=== PATIENT | female | born 1990 | race Caucasian/White ===

== ENCOUNTER 2019-11-09 07:24 | Outpatient (RCR) | payer OTHER, SELFPAY ==
[2019-08-17 12:36] VITALS: BMI 37.8
== END 2019-11-15 23:59 | disposition home or self-care (01) ==
LOC: ANHWOC 07:24
PROVIDERS: Visit Provider Obstetrics & Gynecology
DX: T81.41XD Infection following a procedure, superficial incisional surgical site, subsequent encounter (principal)
CPT/HCPCS: 99212; 99213; A9270; G0463

== ENCOUNTER 2019-12-06 06:14 | Outpatient (CLI) | payer OTHER, SELFPAY | END 2019-12-06 06:15 | disposition home or self-care (01) | PROVIDERS: Visit Provider Obstetrics & Gynecology | DX: Z01.818 Encounter for other preprocedural examination (principal); Z11.59 Encounter for screening for other viral diseases | CPT/HCPCS: 87635; C9803; U0003 ==

== ENCOUNTER 2019-12-08 00:33 | Day surgery (SDC) | payer OTHER, SELFPAY ==
[2019-12-03 09:34] VITALS: BMI 33.6
--- NOTE | 2019-12-08 11:31 | WPDANESEPPF ---
Anes - Initial Pre Proc Eval Procedure: Operation Date: 12/08/19 12:30 Proposed Procedures p Excision Embedded Stitch Post Section - Fuad Cooley MD Date/Time: 12/08/19 11:31 Surgeon: Fuad Cooley MD Pre Op Diagnosis: Post Imbedded Stitch Patient Data Age: 29 Gender: F Height: 5 ft 4 in Weight: 88.9 kg Allergies Allergy/AdvReac Type Severity Reaction Status Date / Time Penicillins Allergy Unknown Hives / Verified 12/03/19 09:35 Red Face Home Medications Medication Instructions Recorded Confirmed Type 21-iron fu-folic acid 1 tablet PO DAILY 12/03/19 12/03/19 History [ Complete] sertraline 100 mg PO DAILY 12/03/19 12/03/19 History Patient hx anesthesia problems: none Family hx anesthesia problems: none PMFSH Past Medical History Medical History (Updated 12/08/19 @ 11:31 by Jay Bennett MD) Obesity Surgical History Surgical History (Updated 12/08/19 @ 11:31 by Jay Bennett MD) H/O dilation and curettage History of section Family History Family History Other Cancer Hypertension Unknown family medical history Social History Social History Smoking status: Former smoker Smoking end date: 07/27/19 Substance use: never Gender identity (if verbalized by the patient): Female Spiritual care concerns: No Anes - Eval Final PreProcedure Day of Procedure 12/08/19 11:31 Patient weight: obese Heart: regular rate and rhythm Lungs: clear to auscultation Airway: Mallampati scale class II Neurological: alert and oriented Last oral intake: >/= 8 hours ASA classification: II Emergent: no Anesthetic plan: proceed Anesthesia type and monitoring: general GIVS and standard monitoring Informed Consent: The patient's anesthetic plan and its attendant risks and benefits were discussed with the patient/family/POA. Questions were solicited and answers provided to the satisfaction of the patient/family/POA.
--- NOTE | 2019-12-08 12:00 | P.HP_ITS ---
H&P: HPI History of Present Illness Chief complaint: Post Imbedded Stitch Narrative: 29 y/o who had a on 07/27/19. She has had persistent trouble with wound infections and slow healing. Wound care has asked that we consider removing an embedded suture which might be hindering the recovery process. Otherwise, no pain, no GI/ complaints. . Baby doing well. Mood much better on Zoloft 100mg daily. Review of Systems Review of Systems: All systems reviewed & are unremarkable except as noted in HPI and below PMFSH Past Medical History Medical History (Updated 12/08/19 @ 12:03 by Fuad Cooley MD) Anxiety Obesity Surgical History Surgical History H/O dilation and curettage History of section Family History Family History Other Cancer Hypertension Unknown family medical history Social History Social History Smoking status: Former smoker Smoking end date: 07/27/19 Substance use: never Gender identity (if verbalized by the patient): Female Spiritual care concerns: No Meds Home Medications and Allergies Home Medications Medication Instructions Recorded Confirmed Type 21-iron fu-folic acid 1 tablet PO DAILY 12/03/19 12/03/19 History [ Complete] sertraline 100 mg PO DAILY 12/03/19 12/03/19 History Allergies Allergy/AdvReac Type Severity Reaction Status Date / Time Penicillins Allergy Unknown Hives / Verified 12/03/19 09:35 Red Face Exam Const: Orientation/consciousness: patient oriented x3 Other: Well- developed, well-nourished female in no acute distress. Neck: Thyroid: thyroid normal Lymphatic: no lymphadenopathy noted (in neck, axilla or inguinal nodes) Resp: Effort & Inspection: normal respiratory effort Auscultation: clear to auscultation bilaterally Cardio: Rate: regular rate Rhythm: regular rhythm Heart sounds: S1 normal heart sound present and S2 normal heart sound present GI: Other: ABD: Soft, nontender, nondistended. No guarding or rebound tenderness. No hepatosplenomegaly. Pfannenstiehl incision shows a defect at the left edge with some apparent suture material. No erythema. No purulence. Nontender. : General: Yes no CVA tenderness Other: Deferred Back/Spine/Pelvis: Back: no CVA tenderness Skin: General skin exam: normal color and no rashes or lesions noted Neuro: General: patient oriented x3 Extrem: Other: Extremities: nontender with no edema Psych: Mental Status: mental status grossly normal Affect: normal affect Assessment and Plan Assessment and plan (1) Impaired wound healing: Status: Acute Assessment and Plan: Have recommended excision of the embedded stitch under MAC. She understands risks of surgery to include risks of anesthesia, risks of pain, infection, bleeding, blood products, thromboembolic phenomena and damage to adjacent structures such as bowel, bladder, ureters, blood vessels and nerves. She understands all these risks and elects to proceed with surgery.
[2019-12-08] MEDS: LACTATED RINGERS 1,000 ML 30 ML IV CONT (12:05)
[2019-12-08 12:09] VITALS: BP 117/68; PULSE 68; RESP 20; TEMP 36.8; O2SAT 98
[2019-12-08] MEDS: ceFAZolin 2 GM/D5W 50 ML 2 GM/50 ML BAG IVPB (12:38)
--- NOTE | 2019-12-08 13:11 | PM.PROC ---
Procedure Note - Detailed Date of procedure: 12/08/19 Pre-op diagnosis: Post Imbedded Stitch Poor wound healing Post-op diagnosis: same Procedure performed: Exploration of wound and excision of scar tissue Description of procedure: The patient was taken to the operating room where general IV sedation was administered. She was prepped and draped. The incisional defect was infiltrated with 10mL of 1% lidocaine for additional anesthesia. The 5mm defect was opened to about 10mm and was probed. There is no obvious suture material. However, there was quite a lot of scar tissue which was able to be excised and freed up. The fascial layer was intact. Excised scar tissue was discarded. The wound was then packed with 1/4inch iodoform gauze and dressed. She was awakened and taken to the recovery room in stable condition. I spoke with her afterward, and I also spoke with the wound/ostomy nurse who has been seeing her. She will follow up in the [facility] for continued care. Implants: None Anesthesia: MAC and local (1% lidocaine) Surgeon: Fuad Cooley MD Estimated blood loss (mL): 5 Drains: No Packing: Yes (1/4 inch iodoform packing gauze) Pathology: none sent Complications: None Condition: stable Disposition: PACU Findings: A 5mm defect at the left edge of the Pfannenstiel scar. Underlying this was scar tissue. The fascial layer was intact.
[2019-12-08 13:15] VITALS: BP 94/63; PULSE 74; RESP 12; O2SAT 94
[2019-12-08 13:45] VITALS: BP 120/68; PULSE 57; RESP 14
== END 2019-12-08 14:15 | disposition home or self-care (01) ==
PROVIDERS: Visit Provider Obstetrics & Gynecology
PROC: 0UT94ZZ Resection of Uterus, Percutaneous Endoscopic Approach (ICD-10-PCS; CPT 13100; principal; 2019-12-08 12:30)
DX: O90.0 Disruption of cesarean delivery wound (principal); F41.9 Anxiety disorder, unspecified; E66.9 Obesity, unspecified; Z68.33 Body mass index [BMI] 33.0-33.9, adult; Z87.891 Personal history of nicotine dependence
CPT/HCPCS: 13100; A9270; J0690; J2250; J2704; J7120

== ENCOUNTER 2020-02-25 07:25 | Outpatient (RCR) | payer OTHER, SELFPAY ==
[2019-11-16 00:04] VITALS: BMI 37.8
--- NOTE | 2020-02-16 15:26 | PCWOUND ---
WOCN NOTE patient called to cancel appointment for 02/17/20. Patient states spouse tested postive for COVID-19. Patient scheduling her test today. Patient states that she is still using Mupirocin ointment to the area, no exudate or pus noted. Patient will contact the wound center once she receives her results and will reschedule at that time.
== END 2020-02-28 23:59 | disposition home or self-care (01) ==
LOC: ANHWOC 07:25
PROVIDERS: Visit Provider Obstetrics & Gynecology
DX: T81.41XD Infection following a procedure, superficial incisional surgical site, subsequent encounter (principal)
CPT/HCPCS: 99211; 99212; G0463

== ENCOUNTER 2020-06-20 09:12 | Emergency (ER) | payer OTHER, SELFPAY ==
[2020-06-20 09:16] VITALS: BP 128/88; PULSE 95; RESP 16; TEMP 36.2; O2SAT 99
--- NOTE | 2020-06-20 09:35 | ED.URI ---
HPI - URI/Sore Throat General Chief Complaint: Upper Respiratory Infection Stated Complaint: sore throat Source: patient Mode of arrival: ambulatory Limitations: no limitations History of Present Illness HPI Narrative: 30-year-old female presents to [facility] with complaints of right sided sore throat, fatigue and headache for the past 2 days. Patient does take Claritin daily. Patient also has been taking Sudafed with minimal relief. Patient reports that her [id number] daughter recently had cold-like symptoms. Patient denies fever, body aches, chills, cough, nose, nasal congestion, nausea, vomiting, diarrhea shortness of breath or wheezing. Patient denies recent travel. Patient is a non-smoker. MD elicited complaint: sore throat Onset (ago): day(s) (2) Consistency: constant Able to tolerate fluids by mouth: Yes Exacerbating factors: nothing Relieving factors: nothing Associated symptoms: headache and other (fatigue) Treatments prior to arrival: cold medicine Related Data Home Medications Medication Instructions Recorded Confirmed Complete 1 tablet PO DAILY 12/03/19 12/08/19 sertraline 100 mg PO DAILY 12/03/19 12/08/19 Allergies Allergy/AdvReac Type Severity Reaction Status Date / Time Penicillins Allergy Unknown Hives / Verified 12/03/19 09:35 Red Face Review of Systems Constitutional: Constitutional: Denies chills, Reports fatigue, Denies fever(s) and Denies weakness ENT: Denies dysphagia, Denies dizziness, Denies epistaxis, Denies nasal congestion and Reports sore throat Cardiovascular: Cardiovascular: Denies chest pain, Denies rapid heart rate and Denies slow heart rate Respiratory: Respiratory: Denies chest congestion, Denies cough, Denies dyspnea and Denies wheezing Gastrointestinal: Gastrointestinal: Denies abdominal pain, Denies diarrhea, Denies nausea and Denies vomiting Integumentary/Breasts: Skin/Breast: Denies rash Neurologic: Denies confusion, Denies vertigo, Denies dizziness, Denies syncope, Reports headache(s), Denies focal weakness, Denies numbness and Denies weakness PMFSH Past Medical History Medical History Anxiety Obesity Surgical History Surgical History H/O dilation and curettage History of section Family History Family History Other Cancer Hypertension Unknown family medical history Social History Social History Smoking status: Former smoker Smoking end date: 07/27/19 Substance use: never Gender identity (if verbalized by the patient): Female Spiritual care concerns: No Comments At time of signature, I agree with nursing past medical, surgical, social and family history. There is no relevant family history pertinent to the presenting complaint. Exam Const: General: no acute distress and alert Nutritional Appearance: well nourished Orientation/consciousness: patient oriented x3 HENMT: Head: normal to inspection Ears: external ears normal and TM's normal bilaterally General nose exam: Normal nares present Mouth: Yes lip normal and Yes moist mucous membranes Throat: uvula midline Other: Mild erythema noted to posterior pharynx. Tonsils are within normal limits. There is no peritonsillar abscess or exudate noted. Neck: Neck: normal visual inspection and no lymphadenopathy Resp: Effort & Inspection: normal respiratory effort Auscultation: clear to auscultation bilaterally Cardio: Rate: regular rate Rhythm: regular rhythm Skin: General skin exam: normal color Rashes: no rashes Neuro: General: patient oriented x3, moves all extremities and no meningeal signs Speech: normal speech Psych: Appearance: grossly normal Mental Status: mental status grossly normal Attitude: cooperative Thought content: Yes
== END 2020-06-20 09:48 | disposition home or self-care (01) ==
PROVIDERS: Emergency Provider Nurse Practitioner Family
DX: J02.9 Acute pharyngitis, unspecified (principal); Z87.891 Personal history of nicotine dependence; F41.9 Anxiety disorder, unspecified; E66.9 Obesity, unspecified; Z68.37 Body mass index [BMI] 37.0-37.9, adult
CPT/HCPCS: 87081; 87880; 99213; G0463

== ENCOUNTER 2022-08-14 17:56 | Emergency (ER) | payer OTHER, SELFPAY ==
[2022-08-14 18:09] VITALS: BP 129/82; PULSE 99; RESP 16; TEMP 36.4; O2SAT 98
--- NOTE | 2022-08-14 18:19 | ED.URI ---
HPI - URI/Sore Throat General Chief Complaint: Upper Respiratory Infection Stated Complaint: SORE THROAT Time Seen by Provider: 08/14/22 18:10 Source: patient Mode of arrival: ambulatory Limitations: no limitations History of Present Illness HPI Narrative: Patient presents today complaining of headache, congestion, nausea since last night with sore throat that started at 5:00 a.m. this morning. Currently rates her pain from 01/27 and has been taking naproxen with mild relief. Reports daughter has been sick with nonspecific symptoms. Related Data Home Medications Medication Instructions Recorded Confirmed alprazolam 0.5 mg tablet 0.5 mg PO DAILY 08/14/22 08/14/22 fluoxetine 20 mg tablet 20 mg PO DAILY 08/14/22 08/14/22 Allergies Allergy/AdvReac Type Severity Reaction Status Date / Time Penicillins Allergy Unknown Hives / Verified 08/14/22 18:10 Red Face Review of Systems Review of Systems: CONSTITUTIONAL: Denies body aches, fever, chills, or sweats. EYES: Denies visual changes, redness, or discharge. ENT: Denies rhinorrhea, or otalgia.+ congestion, sore throat CARDIOVASCULAR: Denies chest pain, palpitations, or edema. RESPIRATORY: Denies cough or dyspnea. GASTROINTESTINAL: Denies abdominal pain, vomiting, or diarrhea.+ nausea GENITOURINARY: Denies dysuria or hematuria. SKIN: Denies rash, itching, or wounds. MUSCULOSKELETAL: Denies back pain, joint pain, or myalgia. NEUROLOGIC: Denies numbness, tingling, or weakness.+ headache PSYCH: Denies depression or anxiety. PMFSH Past Medical History Medical History Anxiety Obesity Surgical History Surgical History H/O dilation and curettage History of section Family History Family History Other Cancer Hypertension Unknown family medical history Social History Social History Smoking status: Former smoker Smoking end date: 07/27/19 Substance use: never Gender identity (if verbalized by the patient): Female Spiritual care concerns: No Comments At time of signature, I have reviewed and agree with nursing past medical, surgical, social and family history unless otherwise noted. Please see nursing chart for further information. There is no relevant family history pertinent to the presenting complaint Exam Narrative: GENERAL: Well-appearing, well-nourished, and in no acute distress. HEAD: Normocephalic, atraumatic. EYES: EOMI. No redness or drainage. Conjunctivae normal. ENT: Mucous membranes pink and moist. Nares clear. No rhinorrhea. TMs normal bilaterally. Throat erythematous. Tiny pustules on the soft palate.. Uvula midline. NECK: Normal AROM. Supple. No lymphadenopathy. CHEST: No respiratory distress. Clear to auscultation. HEART: Regular rate and rhythm. No murmur appreciated. Normal peripheral pulses. EXTREMITIES: Normal range of motion. No edema. SKIN: Warm, dry, no rash. Capillary refill normal. Normal skin turgor. NEURO: No focal deficits. Alert and oriented x3. Gait steady. PSYCH: Normal affect. No signs of depression or anxiety. Course Course Level of Care: Express Care Visit Vital Signs Vital signs: Vital Signs Oxygen Delivery Room Air 08/14/22 18:05 Temperature 97.5 F L 08/14/22 18:09 Pulse Rate 99 08/14/22 18:09 Respiratory Rate 16 08/14/22 18:09 Blood Pressure 129/82 08/14/22 18:09 Pulse Oximetry 98 08/14/22 18:09 Oxygen Delivery Room Air 08/14/22 18:05 Reviewed. Pt has been instructed to follow up with her PCP regarding her elevated blood pressure today. MDM - URI/Sore Throat MDM Narrative Medical decision making narrative: Rapid strep positive. Will prescribe patient azithromycin for strep throat. Anticipatory guidance g
== END 2022-08-14 18:25 | disposition home or self-care (01) ==
PROVIDERS: Emergency Provider Nurse Practitioner; PCP Family Medicine
DX: J02.0 Streptococcal pharyngitis (principal); Z87.891 Personal history of nicotine dependence; F41.9 Anxiety disorder, unspecified; E66.9 Obesity, unspecified; Z68.41 Body mass index [BMI] 40.0-44.9, adult
CPT/HCPCS: 87880; 99213; G0463

== ENCOUNTER 2022-09-26 14:38 | Emergency (ER) | payer OTHER, SELFPAY ==
--- NOTE | 2022-09-26 14:46 | ED.URI ---
HPI - URI/Sore Throat General Chief Complaint: Upper Respiratory Infection Stated Complaint: sore throat, nausea, headache Time Seen by Provider: 09/26/22 14:47 Source: patient and RN notes reviewed History of Present Illness HPI Narrative: Patient is a 32-year-old female who presents to urgent care with complaints of sore throat, intermittent nausea, headache. Patient states it started yesterday around 5:00 a.m.. Patient has taken Tylenol. States that she was positive for strep in July and was on azithromycin at that time. Patient states that her daughter and her both had it twice since then. No other acute complaints. No acute distress noted. Patient aware of plan of care. Some parts of this dictation were generated by voice recognition software and may contain typographical and/or grammatical inaccuracies. Related Data Home Medications Medication Instructions Recorded Confirmed alprazolam 0.5 mg tablet 0.5 mg PO DAILY 08/14/22 09/26/22 fluoxetine 20 mg tablet 20 mg PO DAILY 08/14/22 09/26/22 Allergies Allergy/AdvReac Type Severity Reaction Status Date / Time Penicillins Allergy Unknown Hives / Verified 08/14/22 18:10 Red Face Review of Systems Review of Systems: CONSTITUTIONAL: Denies fever, chills, or sweats. EYES: Denies visual changes, redness, or discharge. ENT: Denies rhinorrhea, congestion, otalgia. Reports of sore throat CARDIOVASCULAR: Denies chest pain, palpitations, or edema. RESPIRATORY: Denies cough or dyspnea. GASTROINTESTINAL: Reports of intermittent nausea GENITOURINARY: Denies dysuria or hematuria. SKIN: Denies rash or itching. MUSCULOSKELETAL: Denies back pain, joint pain, or myalgia. NEUROLOGIC: Reports of headache All other systems reviewed are negative, except as documented in HPI. [facility] Past Medical History Medical History Anxiety Obesity Surgical History Surgical History H/O dilation and curettage History of section Family History Family History Other Cancer Hypertension Unknown family medical history Social History Social History Smoking status: Former smoker Smoking end date: 07/27/19 Substance use: never Gender identity (if verbalized by the patient): Female Spiritual care concerns: No Comments At the time of my signature, I reviewed and agree with the nursing past medical, surgical, social, and family history. There is no relevant family history pertinent to the patient complaint. Exam Narrative: GENERAL: This is a well-nourished, well-developed patient, in no apparent distress. HEAD: normocephalic, atraumatic. EYES: PERRL. Sclera clear/white. Vision is grossly intact. EARS: External ears normal, auditory canals clear and without drainage, TMs normal without perforation. Hearing grossly intact. NOSE: External nose normal with no obvious nasal discharge, nares without redness, no rhinorrhea. THROAT: Mucous membranes moist, moderate erythema to posterior pharynx with petechiae and moderate postnasal drainage. Mild bilateral tonsillar edema without exudate NECK: Neck supple, non-tender without lymphadenopathy CARDIOVASCULAR: Regular rate and rhythm without murmurs, gallops, or rubs. RESPIRATORY: Clear to auscultation. Breath sounds equal bilaterally. No wheezes, rales, or rhonchi. SKIN: Slightly flushed. Warm, intact with no suspicious lesions or rash, good texture and turgor. NEURO: awake, alert, and oriented to person, place and time. There were no obvious focal neurologic abnormalities. EXTREMITIES: No clubbing, cyanosis, or edema. Course Course Level of Care: Express Care Visit Vital Signs Vital signs: Vital Signs Temperature 97.8 F 09/26/22 14:51 Pulse Rate 84 09/26/22 14:
[2022-09-26 14:51] VITALS: BP 139/95; PULSE 84; RESP 16; TEMP 36.6; O2SAT 99
== END 2022-09-26 15:25 | disposition home or self-care (01) ==
PROVIDERS: Emergency Provider Nurse Practitioner Family; PCP Family Medicine
DX: J02.0 Streptococcal pharyngitis (principal); Z87.891 Personal history of nicotine dependence
CPT/HCPCS: 87880; 99213; G0463

== ENCOUNTER 2025-02-28 10:02 | Emergency (ER) | payer OTHER, SELFPAY ==
--- NOTE | 2025-02-28 10:13 | ED_ITS ---
HPI - Skin/Abscess/Foreign Bdy General Chief complaint: Skin/Abscess/Foreign Body Stated complaint: Skin Irritation Time Seen by Provider: 02/28/25 10:25 Source: patient Mode of arrival: ambulatory Limitations: no limitations History of Present Illness HPI narrative: Chela is a 34-year-old female patient presenting to the clinic today with complaints of a a possible insect bite left forearm x2 days. She reports areas becoming more red and itchy. States she possibly received a mosquito bite to the left forearm 2 days ago. She states there is very mild pain with palpation. Denies any fevers, chills, body aches. No difficulty breathing, shortness of breath, or chest pain. Related Data Home Medications ?Medication ?Instructions ?Recorded ?Confirmed ?Last Taken ?Type alprazolam 0.5 mg tablet 0.5 mg PO DAILY 08/14/22 02/28/25 Unknown History fluoxetine 20 mg tablet 20 mg PO DAILY 08/14/22 02/28/25 Unknown History ergocalciferol (vitamin D2) 1,250 1,250 mcg PO WEEKLY 02/28/25 02/28/25 Unknown History mcg (50,000 unit) capsule Allergies Allergy/AdvReac Type Severity Reaction Status Date / Time Penicillins Allergy Unknown Hives / Verified 02/28/25 10:25 Red Face Review of Systems Review of Systems: Pertinent positives per HPI. Patient denies any fever, chills, rash, headache, visual changes, dizziness, cough, runny nose, sore throat, shortness of breath, chest pain, palpitations, nausea, vomiting, diarrhea, constipation, abdominal pain, or any urinary issues. PMFSH Past Medical History Medical History Anxiety Obesity Surgical History Surgical History History of section H/O dilation and curettage Family History Family History Other Cancer Hypertension Unknown family medical history Social History Social History Smoking status: Former smoker Smoking end date: 07/27/19 Substance use: never Gender identity (if verbalized by the patient): Female Spiritual care concerns: No Comments At the time of my signature, I reviewed and agree with the nursing past medical, surgical, social, and family history. There is no relevant family history pertinent to the patient complaint. Exam Narrative: General: Well-developed, well nourished, in no apparent distress Head: Normocephalic, atraumatic. Cardio: Regular rate and rhythm, s1 and s2 normal, no murmur appreciated. Resp: Clear to auscultation bilaterally, no rhonchi, rales, wheezing or rubs. Integumentary: [place], warm, and dry, insect bite to the left forearm with localized redness, swelling, and itching, no purulent discharge Course Course Emergency Course: Portions of this record may have been created with voice recognition software. Level of Care: Express Care Visit Vital Signs Vital signs: Vital Signs Temperature 36.6 C 02/28/25 10:24 Pulse Rate 73 02/28/25 10:24 Respiratory Rate 16 02/28/25 10:24 Blood Pressure 126/85 02/28/25 10:24 Pulse Oximetry 100 02/28/25 10:24 Oxygen Delivery Room Air 02/28/25 10:24 Temperature 36.6 C 02/28/25 10:24 Pulse Rate 73 02/28/25 10:24 Respiratory Rate 16 02/28/25 10:24 Blood Pressure 126/85 02/28/25 10:24 Pulse Oximetry 100 02/28/25 10:24 Oxygen Delivery Room Air 02/28/25 10:24 Vital signs reviewed MDM - Skin/Abscess/Foreign Bdy MDM Narrative Medical decision making narrative: At the time of visit patient is resting comfortably on the exam table. Patient appears to be nontoxic. Complaints of a a possible insect bite left forearm x2 days. She reports areas becoming more red and itchy. States she possibly received a mosquito bite to the left forearm 2 days ago. She states there is very mild pain with palpation. Denies any fevers, chills, body aches. No difficulty breathing, shortness of breath, or chest pain. On exam patient has an insect bite to the left forearm with localized redness, swelling, and itching Plan: I suspect patient has an insect bite with a generalized allergic reaction to the left forearm. Prescription for prednisone and triamcinolone cream was sent to the pharmacy. Supportive measures were discussed with the patient and they voiced understanding discharge instructions and agrees to treatment plan. Return precautions reviewed Differential Diagnosis Differential diagnosis: Likely abscess of skin or subcutaneous tissue, viral exanthem, dermatophytosis, urticaria, herpes zoster, allergic reaction to drug, cellulitis, eczema, insect bites, impetigo and contact dermatitis Discharge Plan Discharge Clinical Impression: Allergic reaction to insect bite Patient Disposition: Home Condition: Stable Instructions: Antibiotic Form, Insect Bite or Sting (ED), General Allergic Reaction (ED) Additional Instructions: Apply triamcinolone cream as directed Take prednisone as directed Avoid hot showers Avoid scratching as this can cause a secondary infection May take Benadryl 25-50mg every 6 hours as needed for itching. Follow up with your PCP in 3-5 days if symptoms persist or sooner if they worsen Go to the Emergency Room if symptoms worsen- fever, rash spreading with treatment, shortness of breath, tongue swelling, drooling, or chest pain Patient Language: French Prescriptions: New prednisone 20 mg tablet 40 mg PO DAILY 5 Days Qty: 10 0RF triamcinolone acetonide 0.1 % cream 1 applic topical BID 7 Days Qty: 30 0RF No Action ergocalciferol (vitamin D2) 1,250 mcg (50,000 unit) capsule 1,250 mcg PO WEEKLY alprazolam 0.5 mg tablet 0.5 mg PO DAILY fluoxetine 20 mg tablet 20 mg PO DAILY Follow-up/Referrals: Enzo Joyner MD [Primary Care Provider] - Time of Disposition: 10:31 Quality NIHSS Nursing Documentation ED NIHSS nursing documentation: reviewed/agree
[2025-02-28 10:24] VITALS: BP 126/85; PULSE 73; RESP 16; TEMP 36.6; O2SAT 100
== END 2025-02-28 10:36 | disposition home or self-care (01) ==
PROVIDERS: Emergency Provider Nurse Practitioner Family; PCP Family Medicine
DX: S50.862A Insect bite (nonvenomous) of left forearm, initial encounter (principal); W57.XXXA Bitten or stung by nonvenomous insect and other nonvenomous arthropods, initial encounter; E66.9 Obesity, unspecified; Z68.32 Body mass index [BMI] 32.0-32.9, adult; F41.9 Anxiety disorder, unspecified; Z87.891 Personal history of nicotine dependence
CPT/HCPCS: 99213; G0463